=== PATIENT | female | born 1985 | race Caucasian/White ===

== ENCOUNTER 2018-09-18 19:34 | Emergency (ER) | payer OTHER ==
[2018-09-18 19:41] VITALS: BP 118/70
--- NOTE | 2018-09-18 19:48 | EDPHY ---
H & P Time Seen by Provider: 09/18/18 19:40 HPI/ROS: CHIEF COMPLAINT: Laceration right thumb HISTORY OF PRESENT ILLNESS: 33-year-old left hand dominant female with up-to- date tetanus sustained accidental laceration left thumb proximal phalanx when she was at work and a glass broke sustaining laceration. Denies flexor or opposition defect. Denies foreign body sensation. PHYSICAL EXAM (Prior to examination, patient consented to physical exam, hands were washed and my usual and customary physical exam procedures followed) 1) GENERAL: Well-developed, well-nourished, alert and oriented. Appears to be in no acute distress. 2) HEAD: Normocephalic 3) HEENT: sclera anicteric 4) LUNGS: Breathing comfortably. 5) SKIN: Right thumb proximal phalanx palmar aspect 2 cm well demarcated linear laceration. 6) MUSCULOSKELETAL: Flexor pollicis longus and flexor pollicis brevis function intact. Opposition intact. 7) NEUROLOGIC: Two-point discrimination intact Smoking Status: Never smoked Constitutional: Initial Vital Signs Temperature (C) 37.0 C 09/18/18 19:36 Heart Rate 92 09/18/18 19:36 Respiratory Rate 16 09/18/18 19:36 Blood Pressure 118/70 09/18/18 19:36 O2 Sat (%) 98 09/18/18 19:36 O2 Delivery Mode Room Air Allergies/Adverse Reactions: amoxicillin Allergy (Verified 09/18/18 19:38) Home Medications: Medication Instructions Recorded NK [No Known Home Meds] 09/18/18 MDM/Departure - MDM Imaging Results: Imaging Impressions Hand X-Ray 09/18/18 19:46 Impression: No definite fracture of the right hand. Images reviewed myself Procedures: Procedure: Laceration repair. I was requested by to perform wound closure I explained the indications, risks and benefits for both laceration repair and anesthetic administration. Verbal consent was obtained from the patient and parent. The laceration on the location was anesthetized using 0.5% bupivicaine without epinephrine digital nerve block. After anesthetic administered the patient was observed for a period of time and had no apparent adverse effects. The wound was cleaned, prepped, draped in normal sterile fashion and explored to its base. No foreign body seen, no foreign bodies palpated. There were no deep structures involved. No tendon injury was identified. The wound was repaired with 3 simple interrupted 5 O Prolene suture . The wound repair was simple. The procedure was performed by myself. Patient has been informed that scarring will occur, although efforts have been made to minimize this. Procedure: Splint A Velcro thumb spica splint was applied by ER chemical lab technician. After application of the splint I returned and re-examined the patient. The splint was adequately immobilizing the joint and distal to the splint the patient's circulation and sensation were intact. Patient shows no signs of compartment syndrome. Was given orthopedic precautions. - Depart Disposition: Home, Routine, Self-Care Clinical Impression: Laceration of right thumb Qualifiers: Encounter type: initial encounter Damage to nail status: without damage Foreign body presence: without foreign body Qualified Code(s): S61.011A - Laceration without foreign body of right thumb without damage to nail, initial encounter Condition: Good Instructions: Care For Your Stitches (ED), Laceration (ED) Additional Instructions: Return to the ER if you develop redness, swelling, discharge, warmth to the wound, red streaks going up your arm, or any other symptoms that concern you. Referrals: Boone Parker MD [Medical Doctor] - 2-3 days, call for appt.
== END 2018-09-18 20:23 | disposition home or self-care (01) ==
PROC: 0HQFXZZ Repair Right Hand Skin, External Approach (ICD-10-PCS; principal; 2018-09-18)
DX: S61.011A Laceration without foreign body of right thumb without damage to nail, initial encounter (principal); W25.XXXA Contact with sharp glass, initial encounter; Y99.0 Civilian activity done for income or pay
CPT/HCPCS: L3807